=== PATIENT | female | born 1965 | race Caucasian/White ===

== ENCOUNTER → 2017-07-25 | Outpatient (CLI) | payer OTHER ==
[~2017-07-25] MED LIST: CHOL2000 PO; HYDR-3124 PO; HYDR-4383 PO; IPRA1AER2 INH; LISI-788 PO; LURA40TA PO; MAGN400T6 PO; MONT1TAB3 PO; MORP1CAP47 PO; POTA10CA28 PO; SERT50TA PO; TORS100T13 PO; torsemide PO
== END | disposition home or self-care (01) ==
LOC: C.CPL 15:22
PROVIDERS: ATTEND Orthopaedic Surgery Sports Medicine
DX: M25.561 Pain in right knee (principal)

== ENCOUNTER → 2017-08-02 | Day surgery (SDC) | payer OTHER ==
[2017-07-25 11:18] VITALS: BMI 39.0
--- NOTE | 2017-08-01 14:44 | History and Physical ---
History & Physical Date August 01, 2017. Chief Complaint right knee pain History of Present Illness The patient is a 51 year old female with complaints of chronic right knee pain. She had a right TKA performed in June of 2013 but has had persistent stiffness. She had multiple PT attempts but without any relief. She is now being set up for an VANITA to improve her ROM and decrease her pain. Past Medical/Surgical History PMH: HTN, Asthma, Anxiety, Hx of low back pain, Obesity Social hx: 1 ppd smoker for 40 years Past surgical hx: R TKA, R knee VANITA, Right knee arthroscopy prior to TKA, Left plantar fascia surgery, C section x 2, tonsillectomy, cholecystectomy, ankle surgery Allergies Coded Allergies: Oxcarbazepine (Verified Allergy, Intermediate, RASH, 07/25/17) Lamotrigine (Verified Allergy, Mild, RASH ON LEGS, 07/25/17) Latex1 -Allergic Contact Dermititis (Verified Allergy, Unknown, REDESS, RASH, 07/25/17) Home Medications Scheduled Cholecalciferol (Vitamin D3), 2,000 UNITS PO QAM Hydroxyzine Hcl (Atarax), 25 MG PO HS Ipratropium-Albuterol (Combivent Respimat), 1 PUFFS INH QID Lisinopril/Hctz (Zestoretic 20MG/25MG), 1 TAB PO HS Lurasidone Hcl (Latuda), 40 MG PO QPM Magnesium Oxide (Mag-Ox), 400 MG PO DAILY Montelukast Sodium (Singulair), 10 MG PO QAM Potassium Chloride (Micro-K Ext Rel), 30 MEQ PO BID Sertraline (Zoloft), 50 MG PO QPM Scheduled PRN Hydrocodone/Acetaminophen ([place] 10/325 Tab), 1 TAB PO TID PRN for Pain Torsemide (Demadex), 50-100 MG PO DAILY PRN for LEG SWELLING Physical Examination Skin: warm/dry, no rash Eyes: normal inspection ENT: normal ENT inspection Head: normocephalic, atraumatic Neck: supple, no adenopathy, trachea midline Respiratory/Chest: lungs clear, normal breath sounds, no respiratory distress Cardiovascular: regular rate, rhythm Abdomen / GI: normal bowel sounds, non tender Extremities: + pertinent finding (Right knee: healed anterior knee incision. Stiffness with PROM and AROM of the right knee. Painful ROM.) Neurologic/Psych: no motor/sensory deficits, alert, oriented x 3 Diagnosis Right knee Arthrofibrosis s/p TKA in 2013 Plan of Treatment Recommend a right knee VANITA. All potential risks, benefits, complications, alternatives, and rehab have been discussed and the patient wishes to proceed. She will be scheduled for 08.02.17.
[~2017-08-02] VITALS: Ht 167.6 cm; Wt 109.1 kg
[~2017-08-02] MED LIST changes: +ATROPINE SULFATE 0.1 MG/ML 5ML SYR IV PRN; +BUPIVACAINE 0.25% 30 ML VIAL ONE; +DEXAMETHASONE SOD INJ 4 MG/ML VIAL ONE; +EpHEDrine SULFATE INJ 50 MG/ML AMP IV PRN; +EpINEphrine INJ 1MG/ML AMP 1 MG/ML AMP ONE; +FENTANYL CITRATE INJ 50 MCG/1 ML 2 ML VIAL IV PRN; +FENTANYL CITRATE INJ 50 MCG/1 ML 2 ML VIAL ONE; +LACTATED RINGER'S 1000ML 1,000 ML IV SCH; +LACTATED RINGER'S 1000ML 500 ML IV SCH; +LIDOCAINE HCL 2% 2 ML VIAL (20MG/ML) ONE; +MIDAZOLAM HCL 1 MG/ML 2ML VIAL ONE; -MORP1CAP47 PO; +ONDANSETRON INJ 2 MG/ML 2 ML VIAL IV PRN; +PROMETHAZINE HCL INJ 6.25 MG in SODIUM CHLORIDE 0.9% 50ML 50 ML IV PRN; +PROPOFOL IV EMULSION 10 MG/ML 20 ML VIAL ONE; -torsemide PO
[2017-08-02 08:19] VITALS: BP 122/77; PULSE 67; TEMP 37.2; O2SAT 96; Ht 167.6 cm; Wt 109.1 kg
--- NOTE | 2017-08-02 08:26 | History & Physical Bridge Note ---
H&P Re-Evaluation Bridge Note: I have examined the patient, reviewed the History & Physical and in the interval since the performance of the History & Physical I have noted the following changes of clinical significance: No changes noted
[2017-08-02 09:09] LABS: CALCIUM 8.3 mg/dl (8.5-10.1); CREATININE 0.71 mg/dl (0.60-1.20); POTASSIUM 3.5 mmol/L (3.5-5.1)
--- NOTE | 2017-08-02 09:28 | [facility] Post Operative Brief Note ---
Immediate Operative Summary Operative Date August 02, 2017. Pre-Operative Diagnosis Right knee arthrofibrosis post total knee Post-Operative Diagnosis Right knee arthrofibrosis post total knee Procedure(s) Performed Right knee Manipulation under anesthesia Surgeon B Marcellus Bung Dropper Surgeon(s) None Estimated Blood Loss None Findings Consistent with Post-Op Diagnosis Specimens None Drains None Anesthesia Type MAC Regional Complication(s) none Disposition Accompanied Pt To Recover: no Disposition: Recovery Room / PACU
--- NOTE | 2017-08-02 09:31 | Discharge Instructions ---
Discharge Instructions Date of Service August 02, 2017. Admission Reason for Admission: Right Knee Arthrofibrosis Discharge Discharge Diagnosis / Problem: right knee arthrofibrosis Discharge Goals Goal(s): Decrease discomfort, Improve function, Increase independence Activity Recommendations Activity Limitations: per Instructions/Follow-up section Weightbearing Status: Right weightbearing (as tolerated but must wear knee immobilizer until the block wears off.) . Instructions / Follow-Up Instructions / Follow-Up Weightbear as tolerated with knee immobilizer until the block has worn off. The knee immobilizer must be on while up until the block has worn off. Please schedule physical therapy for as soon as possible. If your PT has openings today, you may schedule today. Physical therapy should be 5 times per week for the first 2 weeks after the manipulation. Please call [facility] for a follow up for 5-6 weeks after the procedure has been done. [phone]. Current Hospital Diet Patient's current hospital diet: Discharge Diet Recommended Diet: Regular Diet Pending Studies Studies pending at discharge: no Medical Emergencies . Who to Call and When: Medical Emergencies: If at any time you feel your situation is an emergency, please call 911 immediately. . Non-Emergent Contact Non-Emergency issues call your: Surgeon Call Non-Emergent contact if: your pain is not controlled, your pain is worsening . "Provider Documentation" section prepared by Willie Townsend. .
[2017-08-02 10:05] VITALS: BP 118/72; PULSE 71; TEMP 36.5; O2SAT 99
--- NOTE | 2017-08-02 10:22 | Anesthesiology Progress Note ---
Anesthesia Post Op Note Date & Time August 02, 2017 at 10:22 Vital Signs Pain Intensity: 0 Vital Signs Past 12 Hours Date Time Temp Pulse Resp B/P (MAP) Pulse Ox O2 Delivery O2 Flow Rate FiO2 08/02/17 10:05 36.5 71 19 118/72 99 Oxymask 08/02/17 09:50 36.0 66 19 120/67 100 Oxymask 10 08/02/17 09:40 75 14 119/73 99 Oxymask 10 08/02/17 09:33 36.0 75 20 123/72 99 Oxymask 10 08/02/17 08:19 37.2 67 18 122/77 (92) 96 Room Air Notes Mental Status: alert / awake / arousable, participated in evaluation Pt Amnestic to Procedure: Yes Nausea / Vomiting: adequately controlled Pain: adequately controlled Airway Patency, RR, SpO2: stable & adequate BP & HR: stable & adequate Hydration State: stable & adequate Anesthetic Complications: no major complications apparent Block working well in pacu
[2017-08-02 10:45] VITALS: BP 117/62; PULSE 78; TEMP 36.5; O2SAT 99
--- NOTE | 2017-08-02 13:22 | OPERATIVE REPORT ---
DATE OF OPERATION: 08/02/2017 PREOPERATIVE DIAGNOSIS: Right knee arthrofibrosis, post-total knee arthroplasty. POSTOPERATIVE DIAGNOSIS: Right knee arthrofibrosis, post-total knee arthroplasty PROCEDURE. Right knee manipulation under anesthesia. SURGEON: Jeet NUGENT ASSISTANT: None. ANESTHESIA: Monitored anesthesia care with adductor canal block. SPECIMENS: None. DRAINS: None. COMPLICATIONS: None. BLOOD LOSS: Zero. PERTINENT HISTORY: This is a 51-year-old female who had previously undergone a right total knee arthroplasty approximately 4 years ago. Initially, she was doing quite well; however, she had some issues related to insurance, which prohibited her from getting a full course of physical therapy. She has had ongoing attempts of enhancing range of motion of the knee since sought second opinion and was able to only get 0-90 degrees of flexion on the right knee. She had a continued difficulty with flexion of the knee with full extension and was then scheduled for right knee manipulation under anesthesia to attempt to improve her range of motion without open surgical intervention as indicated. All potential risks, benefits, complications, alternatives, rehab, potential for incomplete relief of symptoms, need for further surgery, DVT, PE, , were discussed with the patient in addition to possibility of hardware breakage or dislocation or bone fracture. The patient decided to proceed with the procedure as indicated. PROCEDURE: The patient was administered an adductor canal block, right lower extremity by the department of anesthesia then taken to the operative suite, placed supine on the operating room table. After review of the consent and identification of proper operative site. The patient was anesthetized with monitored anesthesia care. Next, the right knee was then tested for range of motion, noted to have 0-90 degrees of flexion prior to the procedure and then using a standardized orthopedic manipulation techniques the range of motion was then improved with palpable release of adhesions to 135 degrees of flexion while still maintaining 0 degrees of extension. Varus and valgus stress testing were noted to be stable and the anterior and posterior drawer testing were also noted to be stable. Once again, the range of motion was tested, 0-135 degrees of flexion was achieved. After manipulation, the patient was then awakened and taken to recovery in stable condition at which point she was placed in a knee immobilizer until the adductor canal block wears off. She was taken to recovery in stable condition. I attest to the content of the Intraoperative Record and any orders documented therein. Any exception s are noted below.
== END | disposition home or self-care (01) ==
LOC: C.ACU 07:41
PROVIDERS: ATTEND Orthopaedic Surgery Sports Medicine
DX: M24.661 Ankylosis, right knee (principal); Z96.651 Presence of right artificial knee joint; J44.9 Chronic obstructive pulmonary disease, unspecified; J45.909 Unspecified asthma, uncomplicated; F32.9 Major depressive disorder, single episode, unspecified; Z68.39 Body mass index [BMI] 39.0-39.9, adult; E66.9 Obesity, unspecified; F17.200 Nicotine dependence, unspecified, uncomplicated; Z90.89 Acquired absence of other organs; Z90.49 Acquired absence of other specified parts of digestive tract; Z98.890 Other specified postprocedural states; Z91.030 Bee allergy status; Z88.8 Allergy status to other drugs, medicaments and biological substances; Z79.899 Other long term (current) drug therapy

== ENCOUNTER 2022-12-28 05:59 | Observation (INO) ==
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
[2022-12-28] MEDS ORDERED: LR 500ML BOLUS, THEN 15ML/HR IV SCH (06:00)
[2022-12-28] MEDS ORDERED: ROPIVACAINE 0.5% 5 MG/ML 30 ML VIAL ONE (06:29)
[2022-12-28] MEDS ORDERED: MEPIVACAINE HCL 1.5% 30 ML VIAL ONE (06:29)
[2022-12-28] MEDS ORDERED: PROPOFOL IV EMULSION 10 MG/ML 20 ML VIAL IV ONE ×3 (06:36→09:35)
[2022-12-28] MEDS ORDERED: fentaNYL citrate PF 100 MCG/2 ML VIAL ONE (06:36)
[2022-12-28] MEDS ORDERED: MIDAZOLAM HCL 1 MG/ML 2ML VIAL ONE (06:36)
[2022-12-28] MEDS ORDERED: BUPIVACAINE 0.5 % 5 MG/1 ML PF 10ML VIAL ONE (06:55)
[2022-12-28] MEDS ORDERED: ONDANSETRON INJ 2 MG/ML 2 ML VIAL IV PRN ×2 (07:03→19:34)
[2022-12-28] MEDS ORDERED: fentaNYL citrate PF 100 MCG/2 ML VIAL IV PRN (07:03)
[2022-12-28] MEDS ORDERED: HYDROmorphone INJ 1 MG/ML SYRINGE IV PRN (07:03)
[2022-12-28] MEDS ORDERED: ATROPINE SULFATE 0.1 MG/ML 10ML SYR IV PRN (07:03)
[2022-12-28] MEDS ORDERED: ePHEDrine sulfate 50 MG/ML AMP IV PRN (07:03)
--- NOTE | 2022-12-28 07:17 | History & Physical Bridge Note ---
Date of Service December 28, 2022 History & Physical Bridge Note I have examined the patient, reviewed the History & Physical and in the interval since the performance of the History & Physical I have noted the following changes of clinical significance: no changes noted
[2022-12-28] MEDS ORDERED: ceFAZolin 2000MG 2,000 MG/15 ML SYR IV ONE ×2 (07:21→16:00)
[2022-12-28] MEDS ORDERED: ACETAMINOPHEN 1,000 MG/100 ML VIAL IV STA (07:22)
[2022-12-28] MEDS ORDERED: CeleBREX 200 MG CAP PO ONE (07:25)
[2022-12-28] MEDS ORDERED: CeleBREX 200 MG CAP ONE (07:26)
[2022-12-28] MEDS ORDERED: ROPIVACAINE 0.5% HCL/PF 150 MG, BUPIVACAINE 0.75% MPF 20 ML, EPINEPHrine 0.15 MG, Ketor... INFIL SCH (07:30)
[2022-12-28] MEDS ORDERED: TRANEXAMIC ACID / 0.7% NACL 1000MG/100ML BAG IV ONE (07:32)
[2022-12-28] MEDS: ceFAZolin 330 MG/ML 1 GM VIAL ONE ×2 (07:46→10:07)
[2022-12-28] MEDS ORDERED: KETAMINE 50 MG/5 ML SYRINGE ONE (07:58)
[2022-12-28] MEDS ORDERED: TRANEXAMIC ACID / 0.7% NACL 1,000 MG/100 ML BAG IV SCH (09:00)
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
--- NOTE | 2022-12-28 11:24 | Anesthesiology Progress Note ---
Date of Service December 28, 2022 Anesthesia Post Procedure Vital Signs Vital Signs: Temp Pulse Pulse Resp BP Pulse Ox O2 Del Method 12/28/22 11:20 36.3 C L 58 L 16 105/65 97 Room Air 12/28/22 11:10 62 16 116/67 97 Room Air 12/28/22 11:00 75 19 113/72 93 Room Air 12/28/22 10:50 70 23 115/66 98 Room Air 12/28/22 10:42 36.5 C 80 25 H 117/64 100 Room Air 12/28/22 06:27 37 C 88 20 137/74 96 Room Air 12/28/22 06:24 Room Air Transfer of Care Handoff Completed per policy Notes Mental Status: alert / awake / arousable and participated in evaluation Patient Amnestic to Procedure: Yes Nausea / Vomiting: adequately controlled Pain: adequately controlled Airway Patency, RR, SpO2: stable & adequate BP & HR: stable & adequate Hydration State: stable & adequate Neuraxial Anesthesia: was administered and sensory block is resolving Anesthetic Complications: no major complications apparent and Pt Satisfied with anesthetic care
--- NOTE | 2022-12-28 12:51 | XRay Report ---
XR knee LT 1 or 2V routine HISTORY: 57 years-old Female Post Op left knee arthroplasty COMPARISON: 08/29/2022 TECHNIQUE: 2 views of the left knee FINDINGS: Total joint arthroplasty with patellar resurfacing. Anterior midline skin bernardo with expected posto perative soft tissue swelling and deep tissue. No acute fracture, dislocation or unexpected opaque fo reign body. IMPRESSION: Total joint arthroplasty with expected postoperative changes. ACT 112: Negative or not required by law. The above report was generated using voice recognition software. It may contain grammatical, syntax o r spelling errors. Electronically signed by: Sudhakar Biswas M.D. 12/28/2022 12:50 PM
[2022-12-28] MEDS ORDERED: oxyCODONE HCL IR 5 MG TAB (IMMEDIATE RELEASE) ONE (16:11)
[2022-12-28] MEDS ORDERED: oxyCODONE HCL IR 5 MG TAB (IMMEDIATE RELEASE) PO STA (16:13)
[2022-12-28] MEDS ORDERED: INFLUENZA VIRUS QUADRIVALENT VACCINE (IIV4) 0.5 ML SYR IM ONE (16:46)
[2022-12-28] MEDS ORDERED: NALOXONE HCL 0.4 MG/1 ML VIAL/CARP IV PRN (19:34)
[2022-12-28] MEDS ORDERED: bisacodyL 10 MG SUPP PR PRN (19:34)
[2022-12-28] MEDS ORDERED: MAGNESIUM HYDROXIDE SUSP 30 ML UDC PO PRN (19:34)
[2022-12-28] MEDS ORDERED: METOCLOPRAMIDE HCL INJ 5 MG/ML 2 ML VIAL IV PRN (19:34)
[2022-12-28] MEDS ORDERED: ACETAMINOPHEN 1,000 MG/100 ML VIAL IV PRN (19:34)
[2022-12-28] MEDS ORDERED: traMADol HCL 50 MG TABLET PO PRN (19:34)
[2022-12-28] MEDS: SODIUM CHLORIDE 0.9% 1,000 ML IV SCH (20:14)
[2022-12-28] MEDS: oxyCODONE HCL 10 MG TABCR (OxyCONTIN) PO SCH (20:14)
[2022-12-28] MEDS ORDERED: GLUCOSE 40% GEL 15 GM TUBE PO PRN (20:42)
[2022-12-28] MEDS ORDERED: GLUCAGON FOR INJ 1 MG VIAL SQ PRN (20:42)
[2022-12-28] MEDS ORDERED: DEXTROSE 50% 50 ML SYRINGE IV PRN (20:42)
[2022-12-28] MEDS ORDERED: CARBOHYDRATES FOR HYPOGLYCEMIA PO PRN (20:42)
[2022-12-28] MEDS ORDERED: GLUCOSE 10 TAB/TUBE PO PRN (20:42)
[2022-12-28] MEDS ORDERED: TRIAMCINOLONE ACET 0.1% CR 15 GM TUBE TOP PRN (20:43)
[2022-12-28] MEDS ORDERED: ALBUTEROL HFA 8 GM INHALER INH PRN (20:43)
[2022-12-28] MEDS ORDERED: DOCUSATE SODIUM 100 MG CAP PO SCH (21:00)
[2022-12-28] MEDS ORDERED: lisinopril 20 MG TAB PO SCH (21:00)
[2022-12-28] MEDS ORDERED: ROSUVASTATIN CALCIUM 20 MG TAB PO SCH (21:00)
[2022-12-28] MEDS ORDERED: SENNA 8.6 MG TAB PO SCH (21:00)
[2022-12-28] MEDS ORDERED: hydrOXYzine HCl 25 MG TAB PO SCH (21:15)
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
[2022-12-28] MEDS: GLYCOPYRROLATE 1 MG TAB PO SCH (21:44)
[2022-12-28] MEDS: CeleBREX 200 MG CAP PO SCH (21:45)
[2022-12-28] MEDS: DOCUSATE SODIUM 100 MG CAP PO SCH (21:46)
[2022-12-28] MEDS: INSULIN ASPART PER UNIT CHARGE SC SCH (21:51)
[2022-12-28] MEDS: OXcarbazepine 150 MG TABLET PO SCH (21:52)
[2022-12-28] MEDS: POTASSIUM CHLORIDE 10 MEQ TABCR PO SCH (21:52)
[2022-12-29] MEDS: ceFAZolin 2000MG 2,000 MG/15 ML SYR IV SCH ×2 (02:20→09:33)
[2022-12-29] MEDS: oxyCODONE HCL IR 5 MG TAB (IMMEDIATE RELEASE) PO PRN ×3 (03:39→13:58)
[2022-12-29] MEDS ORDERED: ceFAZolin 2000MG 2,000 MG/15 ML SYR IV ONE (04:00)
[2022-12-29] MEDS: SODIUM CHLORIDE 0.9% 1,000 ML IV SCH (06:26)
[2022-12-29] MEDS ORDERED: ASCORBIC ACID 500 MG TAB PO SCH ×2 (08:00→09:00)
[2022-12-29] MEDS: INSULIN ASPART PER UNIT CHARGE SC SCH ×2 (08:17→12:25)
[2022-12-29] MEDS: OXcarbazepine 150 MG TABLET PO SCH (08:18)
[2022-12-29] MEDS: oxyCODONE HCL 10 MG TABCR (OxyCONTIN) PO SCH (08:18)
[2022-12-29] MEDS: POTASSIUM CHLORIDE 10 MEQ TABCR PO SCH (08:19)
[2022-12-29] MEDS: DOCUSATE SODIUM 100 MG CAP PO SCH (08:20)
[2022-12-29] MEDS: CeleBREX 200 MG CAP PO SCH (08:21)
[2022-12-29] MEDS: GLYCOPYRROLATE 1 MG TAB PO SCH (08:21)
--- NOTE | 2022-12-29 08:29 | Hospitalist Progress Note ---
Date of Service December 29, 2022 Assessment & Plan (1) Post-traumatic osteoarthritis of left knee: Plan: 57-year-old female with past medical significant for diabetes, hypokalemia, hypomagnesia, metabolic syndrome, mild persistent asthma, chronic diastolic CHF, hypertension, morbid obesity, irritable bowel syndrome, GERD, CKD stage II, lymphedema of both lower extremity, restless leg syndrome, chronic back pain with sciatica, allergic contact dermatitis, bipolar 1 disorder mixed, tobacco use disorder, history of right total knee replacement, s/p left total knee arthroplasty for posttraumatic osteoarthritis of left knee Posttraumatic osteoarthritis of left knee S/p left total TKA Management as per orthopedics Diabetes hold Jardiance Insulin sliding scale We will monitor blood sugars Hypokalemia and hypomagnesemia Continue home supplements We will follow labs Chronic diastolic CHF Lower extremity lymphedema Continue home torsemide History of mild persistent asthma Continue home inhalers and on Singulair Hypertension On lisinopril We will monitor blood pressure Hyperlipidemia On Crestor Bipolar 1 disorder Continue home medications DVT prophylaxis and disposition As per orthopedics Admission and Anticipated Discharge Date Admission Date: December 28, 2022 Subjective Pt seen in follow up of med. consult for pt s/p TKA Currently sitting up in bed in NAD, working with PT No fever, chills, chest pain, shortness of breath No abd. pain, n/v Eating ok, urinating w/o difficulty. Passing gas. Review of Systems Review of Systems: All systems reviewed & are unremarkable except as noted in Subjective Physical Exam Physical Exam: General- obese F in NAD Head- atraumatic Eyes- EOMI. ENT- oropharynx clear Neck- supple, no JVD. Lungs- clear to auscultation, No wheezing or crackles. Heart- regular rhythm; no murmur, no gallop. Abdomen- normal bowel sounds, soft, nontender, no distension Extremities- s/p Left total tka. Neuro- alert, oriented x 3; EOMI; no facial palsy; no dysarthria;moves extremities. Skin- warm & dry Results & Data Results & Data Vital Signs (Past 12 Hours) Vital Signs Temp Pulse Resp BP Pulse Ox O2 Del Method 12/29/22 06:27 36.6 C 68 16 107/64 97 Room Air 12/29/22 02:20 36.6 C 73 18 108/68 96 Room Air 09/29/23 22:26 36.5 C 74 16 121/72 96 Room Air Laboratory Results 12/29/22 12/28/22 12/28/22 Range/Units 07:46 20: 16:52 POC Glucose 148 H 184 H 189 H (70-99) mg/dl 12/28/22 Range/Units 10:44 POC Glucose 161 H (70-99) mg/dl Medications Administered Current Inpatient Medications Albuterol (Albuterol Hfa 8 Gm Inhaler) 2 puffs INH Q4H PRN PRN Reason: Shortness Of Breath Or Wheezing Stop: 01/27/23 20:42 Apixaban (Apixaban 5 Mg Tablet) 5 mg PO BID [facility] Stop: 01/28/23 08:59 Last Admin: 12/29/22 08:21 Dose: 5 mg Ascorbic Acid (Ascorbic Acid 500 Mg Tab) 500 mg PO BIDM [facility] Stop: 01/28/23 07:59 Last Admin: 12/29/22 08:21 Dose: 500 mg Bisacodyl (Bisacodyl 10 Mg Supp) 10 mg TX DAILY PRN PRN Reason: Constipation Stop: 01/27/23 19:33 Celecoxib (Celebrex 200 Mg Cap) 200 mg PO BID [facility] Stop: 01/27/23 20:59 Last Admin: 12/29/22 08:21 Dose: 200 mg Cetirizine HCl (Cetirizine Hcl 10 Mg Tablet) 10 mg PO QAM [facility] Stop: 01/28/23 08:59 Last Admin: 12/29/22 08:19 Dose: 10 mg Dextrose (Dextrose 50% 50 Ml Syringe) 25 - 50 ml IV UD PRN; Protocol PRN Reason: Hypoglycemia Protocol Stop: 01/27/23 20:41 Docusate Sodium (Docusate Sodium 100 Mg Cap) 100 mg PO BID [facility] Stop: 01/27/23 20:59 Last Admin: 12/29/22 08:20 Dose: 100 mg Duloxetine HCl (Duloxetine Hcl 30 Mg Cap) 30 mg PO QAM [facility] Stop: 01/28/23 08:59 Last Admin: 12/29/22 08:19 Dose: 30 mg Duloxetine HCl (Duloxetine Hcl 60 Mg Cap) 60 mg PO QAM [facility] Stop: 01/28/23 08:59 Last Admin: 12/29/22 08:19 Dose: 60 mg Fluticasone/Vilanterol (Fluticasone/Vilanterol 100/25mcg 14 Puffs/Inhaler) 1 puffs INH DAILY [facility] Stop: 01/28/23 08:59 Last Admin: 12/29/22 08:21 Dose: 1 puffs Glucagon (Glucagon For Inj 1 Mg Vial) 1 mg SQ UD PRN; Protocol PRN Reason: Hypoglycemia Protocol Stop: 01/27/23 20:41 Glucose (Glucose 10 Tab/Tube) 4 - 8 tab PO UD PRN; Protocol PRN Reason: Hypoglycemia Treatment Stop: 01/27/23 20:41 Glucose (Glucose 40% Gel 15 Gm Tube) 15 - 30 gm PO UD PRN; Protocol PRN Reason: Hypoglycemia Protocol Stop: 01/27/23 20:41 Glycopyrrolate (Glycopyrrolate 1 Mg Tab) 2 mg PO BID [facility] Stop: 01/27/23 21:14 Last Admin: 12/29/22 08:21 Dose: 2 mg Hydroxyzine HCl (Hydroxyzine Hcl 25 Mg Tab) 50 mg PO HS [facility] Stop: 01/27/23 21:14 Last Admin: 12/28/22 21:45 Dose: 50 mg Acetaminophen (Ofirmev) 1,000 mg in 100 mls @ 400 mls/hr IV Q8H PRN PRN Reason: MILD Pain (1,2,3) or Pre PT Stop: 12/29/22 19:40 Cefazolin Sodium (Ancef 2000mg) 2,000 mg in 15 mls @ 3.75 mls/min IV Q8H [facility]; Protocol Stop: 12/29/22 09:48 Last Admin: 12/29/22 02:20 Dose: 3.75 mls/min Insulin Aspart (Insulin Aspart Per Unit Charge) 0 units SC ACHS [facility] Stop: 01/27/23 20:59 Last Admin: 12/29/22 08:17 Dose: 3 units Lisinopril (Lisinopril 20 Mg Tab) 20 mg PO HS [facility] Stop: 01/27/23 20:59 Last Admin: 12/28/22 21:52 Dose: 20 mg Magnesium Hydroxide (Magnesium Hydroxide Susp 30 Ml Udc) 30 ml PO Q6H PRN PRN Reason: Constipation Stop: 01/27/23 19:33 Magnesium Oxide (Magnesium Oxide 400 Mg Tab) 400 mg PO QAM [facility] Stop: 01/28/23 08:59 Last Admin: 12/29/22 08:19 Dose: 400 mg Metoclopramide HCl (Metoclopramide Hcl Inj 5 Mg/Ml 2 Ml Vial) 10 mg IV Q6H PRN PRN Reason: Nausea And Vomiting Stop: 01/27/23 19:33 Miscellaneous (Carbohydrates For Hypoglycemia ) 15 - 30 gm PO UD PRN PRN Reason: Hypoglycemia Protocol Stop: 01/27/23 20:41 Montelukast Sodium (Montelukast Sodium 10 Mg Tablet) 10 mg PO QAM [facility] Stop: 01/28/23 08:59 Last Admin: 12/29/22 08:20 Dose: 10 mg Multivitamins (Multivitamin Tab) 1 tab PO QAM [facility] Stop: 01/28/23 08:59 Last Admin: 12/29/22 08:21 Dose: 1 tab Naloxone HCl (Naloxone Hcl 0.4 Mg/1 Ml Vial/Carp) 0.1 mg IV Q5M PRN PRN Reason: Oversedation/Resp Depression Stop: 01/27/23 19:33 Ondansetron HCl (Ondansetron Inj 2 Mg/Ml 2 Ml Vial) 4 mg IV Q6H PRN PRN Reason: Nausea And Vomiting Stop: 01/27/23 19:33 Oxcarbazepine (Oxcarbazepine 150 Mg Tablet) 150 mg PO BID [facility] Stop: 01/27/23 20:59 Last Admin: 12/29/22 08:18 Dose: 150 mg Oxycodone HCl (Oxycodone Hcl Ir 5 Mg Tab (Immediate Release)) 5 - 10 mg PO Q4H PRN PRN Reason: Pain or Pre PT Stop: 01/11/23 19:33 Last Admin: 12/29/22 03:39 Dose: 10 mg Oxycodone HCl (Oxycodone Hcl 10 Mg Tabcr (Oxycontin)) 10 mg PO Q12 [facility] Stop: 01/11/23 20:59 Last Admin: 12/29/22 08:18 Dose: 10 mg Pantoprazole Sodium (Pantoprazole 40 Mg Tab) 40 mg PO QAM [facility] Stop: 01/28/23 08:59 Last Admin: 12/29/22 08:20 Dose: 40 mg Potassium Chloride (Potassium Chloride 10 Meq Tabcr) 30 meq PO BID [facility] Stop: 01/27/23 20:59 Last Admin: 12/29/22 08:19 Dose: 30 meq Rosuvastatin Calcium (Rosuvastatin Calcium 20 Mg Tab) 20 mg PO HS [facility] Stop: 01/27/23 20:59 Last Admin: 12/28/22 21:52 Dose: 20 mg Sennosides (Senna 8.6 Mg Tab) 17.2 mg PO HS [facility] Stop: 01/27/23 20:59 Last Admin: 12/28/22 21:45 Dose: 17.2 mg Torsemide (Torsemide 100 Mg Tab) 100 mg PO QAM [facility] Stop: 01/28/23 08:59 Last Admin: 12/29/22 08:19 Dose: 100 mg Tramadol HCl (Tramadol Hcl 50 Mg Tablet) 50 - 100 mg PO Q4H PRN PRN Reason: Pain & Pre PT Stop: 01/27/23 19:33 Triamcinolone Acetonide (Triamcinolone Acet 0.1% Cr 15 Gm Tube) 1 appln TOP BID PRN PRN Reason: Itching Stop: 01/27/23 20:42 Vitamin D (Cholecalciferol 1,000 Units 25 Mcg Tab) 1,000 units PO Q2D@0900 [facility] Stop: 01/28/23 08:59 Last Admin: 12/29/22 08:19 Dose: 1,000 units
[2022-12-29] MEDS ORDERED: DULoxetine HCL 30 MG CAP PO SCH (09:00)
[2022-12-29] MEDS ORDERED: CETIRIZINE HCL 10 MG TABLET PO SCH (09:00)
[2022-12-29] MEDS ORDERED: CHOLECALCIFEROL 1,000 UNITS 25 MCG TAB PO SCH (09:00)
[2022-12-29] MEDS ORDERED: DULoxetine HCL 60 MG CAP PO SCH (09:00)
[2022-12-29] MEDS ORDERED: MONTELUKAST SODIUM 10 MG TABLET PO SCH (09:00)
[2022-12-29] MEDS ORDERED: MULTIVITAMIN TAB PO SCH (09:00)
[2022-12-29] MEDS ORDERED: APIXABAN 5 MG TABLET PO SCH (09:00)
[2022-12-29] MEDS ORDERED: FLUTICASONE/VILANTEROL 100/25MCG 14 PUFFS/INHALER INH SCH (09:00)
[2022-12-29] MEDS ORDERED: TORSEMIDE 100 MG TAB PO SCH (09:00)
[2022-12-29] MEDS ORDERED: PANTOprazole 40 MG TAB PO SCH (09:00)
[2022-12-29] MEDS ORDERED: MAGNESIUM OXIDE 400 MG TAB PO SCH (09:00)
[2022-12-29 09:21] LABS: Hematocrit (blood only) 37.1 % (37.0-47.0); Hemoglobin 12.6 g/dl (12.0-16.0); Mean Corpuscular Hemoglobin 30.7 pg (25.0-34.0); Mean Corpuscular Volume 90.5 fL (80.0-100.0); Mean Platelet Volume 10.5 fL (9.4-12.4); Platelet Count 212 K/uL (130-400); RDW Coefficient of Variation 12.8 % (11.5-14.5); White Blood Count 9.39 K/ul (4.8-10.8)
[2022-12-29 09:29] LABS: BUN Creatinine Ratio 21.5 (10-20); Calcium 8.9 mg/dl (8.6-10.3); Creatinine Clr Calc Pharmacy 98.9 ml/min; Est GFR (Non-African American) 83.7 ml/min; Magnesium 1.8 mg/dl (1.7-2.4); Potassium 4.3 mmol/L (3.5-5.1)
--- NOTE | 2022-12-29 14:06 | Orthopedic Progress Note ---
Date of Service December 29, 2022 Assessment & Plan (1) Post-traumatic osteoarthritis of left knee: Plan: Postoperative day #1 status post MRI matched left total knee arthroplasty. Arrangements have been made for [facility] care to meet the patient at home for home health care and physical therapy. VTE prophylaxis will be Eliquis 5 mg 1 p.o. daily due to history of previous blood clots. Follow-up with Dr. Germain 2 weeks postoperative. 2-week follow-up appointment already made at [facility] [phone] (2) Contracture, left knee: (3) Leg length discrepancy: (4) Left knee pain: Admission and Anticipated Discharge Date Admission Date: December 28, 2022 Subjective Seen on rounds. Currently sitting up in bed in [facility], working with OT. Minimal complaints of left knee pain. Well controlled overall. No foot drop. No fever, chills, chest pain, shortness of breath No abd. pain, n/v Physical Exam Constitutional: WD/WN, vitals as above Eyes: PERRL, conjunctivae normal, anicteric sclerae ENMT: external ear and nose normal, oropharynx normal Neck: trachea midline, no thyromegaly Respiratory: normal respiratory effort, lungs clear to auscultation Cardiovascular: RRR, no murmur, no edema Gastrointestinal (Abdomen): normal bowel sounds, soft, nontender, no hepatosplenomegaly Musculoskeletal: Left knee dressing intact from toes to groin. No evidence of strikethrough. Compartments are soft. Homans negative. No evidence of foot drop. Pedal pulses palpable 2/4 bilateral. Knee range of motion limited due to discomfort 0 to 85 degrees flexion. Well aligned left knee and leg lengths closer to equal approximation postop. Skin: no rashes, warm and dry Neurologic: PERRL, EOMI, accommodation nl, no face palsy, no dysarthria Psychiatric: A+Ox3, euthymic affect Lymphatic: no cervical or axillary lymphadenopathy Results & Data Vital Signs (Past 12 Hours) Vital Signs Temp Pulse Resp BP Pulse Ox O2 Del Method 12/29/22 06:27 36.6 C 68 16 107/64 97 Room Air 12/29/22 02:20 36.6 C 73 18 108/68 96 Room Air Diagnostic Findings Radiographs reviewed.
== END 2022-12-29 14:54 | disposition home health service (06) ==
LOC: 3E 05:59 → ASU 05:59